=== PATIENT | female | born 1970 ===

== ENCOUNTER 2022-05-31 20:23 | Emergency (ER) | payer MEDICARE, OTHER ==
[~2022-05-31] VITALS: Ht 157.5 cm; Wt 53.2 kg
[2022-05-31 20:24] VITALS: TEMP 98.7
[2022-05-31 21:08] LABS: MEAN CELL VOLUME 94 fl (80.0-100.0); MEAN CORPUSCULAR HGB CONC 33 g/dl (33.0-37.0); MEAN PLATELET VOLUME 10.6 fl (7.4-10.4); PLATELET COUNT 417 K/mm3 (130-400); RED BLOOD COUNT 3.09 M/mm3 (4.10-5.30)
[2022-05-31] MEDS ORDERED: AMBIEN 5MG TABLE5 MG (21:19)
[2022-05-31] MEDS ORDERED: NORCO 325 MG-101 TAB PO (21:20)
[2022-05-31] MEDS ORDERED: NARCAN4 MG NS (21:20)
[2022-05-31] MEDS ORDERED: NARCAN4 MG (21:20)
[2022-05-31] MEDS ORDERED: MS CONTIN 330 MG/TAB PO (21:20)
[2022-05-31] MEDS ORDERED: DECADRON 4MG TAB4 MG PO (21:21)
[2022-05-31] MEDS ORDERED: CYMBALTA 30MG30 MG PO (21:21)
[2022-05-31] MEDS ORDERED: FLEXERIL5 MG PO (21:21)
[2022-05-31] MEDS ORDERED: TAPAZOLE5 MG PO (21:21)
[2022-05-31 21:22] LABS: HEMATOCRIT 28.9 % (37.0-47.0); HEMOGLOBIN 9.4 g/dl (12.5-16.0); MEAN CORPUSCULAR HEMOGLOBIN 30 pg (27-31)
[2022-05-31] MEDS ORDERED: COMPAZINE 110 MG/TAB PO (21:22)
[2022-05-31] MEDS ORDERED: TENORMIN 5050 MG/TAB PO (21:22)
[2022-05-31] MEDS ORDERED: FOLIC ACID 11 MG/TA1 PO (21:22)
[2022-05-31] MEDS ORDERED: ZOFRAN8 MG PO (21:22)
[2022-05-31] MEDS ORDERED: ATARAX 25MG25 MG/TAB PO (21:22)
[2022-05-31] MEDS ORDERED: PROTONIX 40MG T40 MG PO (21:23)
[2022-05-31 21:27] LABS: ACETONE,SERUM NEGATIVE
[2022-05-31 21:31] LABS: ALANINE AMINOTRANSFERASE 229 U/L (0-55); ALKALINE PHOSPHATASE 147 U/L (40-150); ANION GAP 11 mmol/L (7-16); AST,SGOT 118 U/L (5-34); BLOOD UREA NITROGEN 34 mg/dL (10-20); CALCIUM 8.4 mg/dL (8.4-10.2); CARBON DIOXIDE 21 mmol/L (22-29); CHLORIDE 103 mmol/L (98-107); CREATININE, serum 1.57 mg/dL (0.57-1.11); LIPASE 27 U/L (8-78); POTASSIUM 4.9 mmol/L (3.5-4.5); SODIUM 135 mmol/L (136-145); TOTAL PROTEIN 6.6 gm/dL (6.2-8.1)
[2022-05-31 21:36] LABS: GLUCOSE 559 mg/dL (70-99)
[2022-05-31 21:41] LABS: ANISOCYTOSIS 2+; BAND 2 % (0-10); HYPOCHROMIA 1+; LYMPHOCYTE 12 % (20.0-51.0); METAMYELOCYTE 3 % (0-0); NEUTROPHILS 81 % (42.0-75.2); PLATELET ESTIMATE INCREASED (NORMAL)
[2022-05-31 21:45] LABS: BILIRUBIN,TOTAL 0.5 mg/dL (0.2-1.2)
[2022-05-31 23:16] LABS: COLLECTION METHOD CLEAN CATCH
[2022-05-31 23:22] LABS: MUCOUS Present (NOT PRESENT); SQUAMOUS EPITHELIAL 0-2 /hpf (0-10); URINE BACTERIA None Seen /hpf (NONE SEEN)
[2022-05-31 23:23] LABS: PH 5.5 (5.0-8.5); URINE APPEARANCE Clear (CLEAR/HAZY); URINE BLOOD TRACE-LYSED (NEGATIVE); URINE COLOR Yellow (YELLOW); URINE GLUCOSE 3+ (NEGATIVE); URINE KETONE Negative (NEGATIVE); URINE NITRATE Negative (NEGATIVE); URINE PROTEIN(semi-quant) 1+ (NEGATIVE); URINE UROBILINOGEN 0.2 E.U/dL (0.2-1.0)
[2022-05-31 23:26] VITALS: BP 112/77; PULSE 90
[2022-05-31 23:29] LABS: TRICYCLIC ANTIDEPRESS URINE NEGATIVE
== END 2022-05-31 23:26 | disposition left against medical advice (07) ==
LOC: COL.ER 20:23
PROVIDERS: Physician Assistant
DX: R41.82 Altered mental status, unspecified (principal); R73.9 Hyperglycemia, unspecified; F17.210 Nicotine dependence, cigarettes, uncomplicated; Z28.310 Unvaccinated for COVID-19; Z85.841 Personal history of malignant neoplasm of brain; Z85.118 Personal history of other malignant neoplasm of bronchus and lung; Z92.21 Personal history of antineoplastic chemotherapy; Z92.3 Personal history of irradiation
CPT/HCPCS: J1815; J7030

== ENCOUNTER 2022-09-02 15:28 | Inpatient (IN) | payer MEDICARE, OTHER ==
[~2022-09-02] VITALS: Ht 157.5 cm; Wt 54.2 kg
[~2022-09-02 15:28] MED LIST: AMBIEN 5MG TABLE5 MG PO; ATARAX 25MG25 MG/TAB PO; BD ALCOHOL1 SWA MC; COMPAZINE 110 MG/TAB PO; CYMBALTA 30MG30 MG PO; DECADRON 4MG TAB4 MG PO; DOXYCYCLINE 10100 MG PO; FLEXERIL5 MG PO; FOLIC ACID 11 MG/TA1 PO; FREESTYLE PREC1 EAC5 MC; GLUCAGON EMERGEN1 M1 SQ; GLUCOSE TEST ST1 DEV MC; INSULIN PEN NE1 EAC1 MC; LANCETS MC; LEVEMIR FLEX100 U/ML SQ; MS CONTIN 330 MG/TAB PO; NARCAN4 MG; NARCAN4 MG NS; NORCO 325 MG-101 TAB PO; PROTONIX 40MG T40 MG PO; PROVENTIL0.09 MG/A1 IH; TAPAZOLE5 MG PO; TENORMIN 5050 MG/TAB PO; ZOFRAN8 MG PO
[2022-09-02 16:26] LABS: BASO % 0.3 % (0.0-2.0); EOS # 0.1 K/mm3 (0.0-0.7); EOS % 0.9 % (0.0-4.0); GRAN % 76.1 % (42.2-75.2); HEMOGLOBIN 10.1 g/dl (12.5-16.0); LYMPH # 1.1 K/mm3 (1.2-3.4); LYMPH % 13.6 % (20.0-51.0); MEAN CELL VOLUME 95 fl (80.0-100.0); MEAN CORPUSCULAR HEMOGLOBIN 31 pg (27-31); MEAN CORPUSCULAR HGB CONC 33 g/dl (33.0-37.0); MEAN PLATELET VOLUME 10.4 fl (7.4-10.4); MONO # 0.6 K/mm3 (0.1-0.6); MONO % 8.1 % (1.7-9.3); PLATELET COUNT 149 K/mm3 (130-400); RED BLOOD COUNT 3.22 M/mm3 (4.10-5.30); REDCELL DISTRIBUTION WIDTH-CV 15.9 % (11.5-14.5)
[2022-09-02 16:28] LABS: HEMATOCRIT 30.5 % (37.0-47.0)
[2022-09-02 16:47] LABS: ALANINE AMINOTRANSFERASE 59 U/L (0-55); ALBUMIN 3.4 gm/dL (3.5-5.0); ALKALINE PHOSPHATASE 226 U/L (40-150); ANION GAP 13 mmol/L (7-16); AST,SGOT 87 U/L (5-34); BILIRUBIN,TOTAL 1.3 mg/dL (0.2-1.2); BLOOD UREA NITROGEN 19 mg/dL (10-20); C-REACTIVE PROTEIN 12.31 mg/dL (0.00-0.50); CALCIUM 9.6 mg/dL (8.4-10.2); CARBON DIOXIDE 25 mmol/L (22-29); CHLORIDE 101 mmol/L (98-107); CREATININE, serum 1.44 mg/dL (0.57-1.11); GLUCOSE 150 mg/dL (70-99); LIPASE 9 U/L (8-78); MAGNESIUM 1.7 mg/dL (1.6-2.6); POTASSIUM 3.2 mmol/L (3.5-4.5); SODIUM 139 mmol/L (136-145); TOTAL PROTEIN 7.2 gm/dL (6.2-8.1)
[2022-09-02 16:48] LABS: SALICYLATE < 5.0 mg/dL (15.0-30.0)
[2022-09-02 16:54] LABS: COLLECTION METHOD CLEAN CATCH
[2022-09-02 16:55] LABS: TROPONIN-I < 0.010 ng/mL (0.00-0.033)
[2022-09-02 17:04] LABS: MUCOUS Present (NOT PRESENT); SQUAMOUS EPITHELIAL None Seen /hpf (0-10); URINE BACTERIA None Seen /hpf (NONE SEEN)
[2022-09-02 17:05] LABS: PH 5.5 (5.0-8.5); URINE APPEARANCE Clear (CLEAR/HAZY); URINE COLOR Yellow (YELLOW); URINE GLUCOSE TRACE (NEGATIVE); URINE KETONE 1+ (NEGATIVE); URINE PROTEIN(semi-quant) 2+ (NEGATIVE)
[2022-09-02 17:06] LABS: URINE BLOOD TRACE-INTACT (NEGATIVE); URINE NITRATE Negative (NEGATIVE)
--- NOTE | 2022-09-02 17:49 | NUR ---
Cefepime substituted to 1 gram q 8 hours per patient's decreased renal function.
[2022-09-02 18:00] VITALS: BP 135/76; PULSE 80; TEMP 99.1
--- NOTE | 2022-09-02 18:14 | NUR ---
Patient arrived to the unit by wheelchair, alert and oriented x 2, states she does not know why she is here, VSS. Asssessment intake completed.
[2022-09-02 19:08] VITALS: BP 124/71; PULSE 82; TEMP 99.1
--- NOTE | 2022-09-02 19:46 | NUR ---
PT GIVEN SVN VIA MASK. TOLERATED WELL. SHE CONTINUES TO DOZE OF DURING TREATMENT. NO SIGNS OF DISTRESS NOTED. NO VOICED CONERNS.
[2022-09-02 23:12] VITALS: BP 121/70; PULSE 71; TEMP 98.5
--- NOTE | 2022-09-03 01:58 | NUR ---
Shift assessment completed at 2029. Pt is A&O x3. Words are unintelligible due to swollen R cheek. Pt requesting mouth wash to calm pain. Tylenol offered, but pt refused. Mouth wash provided, and reassessed 20 min later. Pt expressed no improvement. Provider notified and received new orders for pain management. LFA peripheral line is CDI; fluids running. Bed alarm on. Belongings and call light are within reach.
[2022-09-03 03:07] VITALS: BP 118/70; PULSE 77; TEMP 98
[2022-09-03 05:59] LABS: BASO % 0.3 % (0.0-2.0); GRAN # 5.8 K/mm3 (1.4-6.5); GRAN % 82.8 % (42.2-75.2); LYMPH % 13.5 % (20.0-51.0); MEAN CELL VOLUME 96 fl (80.0-100.0); MEAN CORPUSCULAR HGB CONC 32 g/dl (33.0-37.0); MEAN PLATELET VOLUME 10.6 fl (7.4-10.4); MONO # 0.2 K/mm3 (0.1-0.6); MONO % 2.8 % (1.7-9.3); PLATELET COUNT 135 K/mm3 (130-400); RED BLOOD COUNT 2.99 M/mm3 (4.10-5.30); REDCELL DISTRIBUTION WIDTH-CV 15.9 % (11.5-14.5)
[2022-09-03 06:03] LABS: HEMATOCRIT 28.7 % (37.0-47.0); HEMOGLOBIN 9.3 g/dl (12.5-16.0); MEAN CORPUSCULAR HEMOGLOBIN 31 pg (27-31)
[2022-09-03 06:12] LABS: CALCIUM 8.6 mg/dL (8.4-10.2); CREATININE, serum 0.95 mg/dL (0.57-1.11); MAGNESIUM 1.6 mg/dL (1.6-2.6); POTASSIUM 3.7 mmol/L (3.5-4.5)
[2022-09-03 06:34] LABS: TSH w REFLEX 1.091 uIU/mL (0.350-4.940)
--- NOTE | 2022-09-03 07:06 | NUR ---
PT REFUSED TO TAKE TREATMENT IN NO DISTRESS
[2022-09-03 07:40] VITALS: BP 123/76; PULSE 84; TEMP 98.3
--- NOTE | 2022-09-03 08:45 | NUR ---
Pt awake and laying in bed. Morning medications administered per eMAR. Shift assessment completed. VSS. Pt A&Ox4. IV site L forearm, patent, no edema, no redness, and keisha wrap in place. Pt agitated as she states she "needs" her "scheduled" pain medication. This nurse explains the pain medication she is referring to is not scheduled. Pt states she is having pain on her lower back 03/07; JORGE Ely notified and Donte on order. Call light within reach.
--- NOTE | 2022-09-03 09:41 | NUR ---
MAURILIO met with the patient to discuss discharge plan. The patient lives in [place] with her friend, Nyla Stephenson (ph#[phone]). She reports independence with ADLs and has a cane and walker. SW inquired about home health. The patient states that she had home health in the past, but not any longer. The patient's PCP is Dr. Anny East and she receives her medications from [facility] in [facility]. The patient does not have a DPOA-HC, but she was interested in obtaining a form. MAURILIO provided. The patient states that she is and has two children: Shereen ([place]) and Herber ([place], [place]). MAURILIO informed her how her two children would be her legal next of kin. The patient states that she has not talked to her children in over a month and would not want them to make her decisions. She states that she would want her mother, Kassidy Davis, to make her decisions. MAURILIO informed her then it is important that she complete a DPOA-HC then. The patient verbalized understanding, but declined to complete the DPOA-HC at this time. She states that she does not have a phone number for her mother right now. The patient plans to return home with her friend upon discharge. SW discussed getting home health services started back up again. The patient declined. *Discharge plan: home with friend*
[2022-09-03] MEDS ORDERED: KEYTRUDA25 MG/ML IV (10:53)
--- NOTE | 2022-09-03 11:00 | NUR ---
Pt informs this nurse she would like to leave AMA and would like to speak to the charge nurse. This nurse explained to the pt the importance and necessity of treatment. Pt continues to express she "just wants to go home." This nurse notified QUAN Gunn.
[2022-09-03 11:21] VITALS: BP 135/71; PULSE 77; TEMP 98
--- NOTE | 2022-09-03 12:52 | NUR ---
Initial visit: Pt was resting and content. Pt stated no needs rigth now. Physical Security Manager will follow up as needed.
--- NOTE | 2022-09-03 13:05 | NUR ---
PT REFUSED TO TAKE RESTING COMFORTABLY WITH NO INCREASED WOB
[2022-09-03] MEDS ORDERED: LEVEMIR FLEX100 U/ML SQ (13:38)
[2022-09-03] MEDS ORDERED: MAG-OX 400400 MG/TAB PO (13:39)
[2022-09-03] MEDS ORDERED: K-DUR 10 MEQ T10 MEQ PO (13:40)
[2022-09-03] MEDS ORDERED: PRINIVIL10 MG PO (13:40)
[2022-09-03] MEDS ORDERED: OMNICEF 300MG300 MG PO (14:18)
--- NOTE | 2022-09-03 14:20 | NUR ---
Pt departed AMA.
--- NOTE | 2022-09-03 14:23 | NUR ---
The patient left AMA.
--- NOTE | 2022-09-03 16:00 | NUR ---
[facility] contacted [facility] social worker[facility]. Caregivers reports that they had the patient on for services and the plan was to discharge her from services on Saturday. Caregivers updated that the patient left AMA. This SW faxed the Discharge Summary to [facility].
== END 2022-09-03 14:20 | disposition left against medical advice (07) | DRG 92 ==
LOC: COL.ER 15:28 → MEDICAL 16:49
PROVIDERS: Emergency Medicine; ADMIT Internal Medicine
DX: G92.9 Unspecified toxic encephalopathy (principal); C34.90 Malignant neoplasm of unspecified part of unspecified bronchus or lung; C79.31 Secondary malignant neoplasm of brain; R65.10 Systemic inflammatory response syndrome (SIRS) of non-infectious origin without acute organ dysfunction; D84.9 Immunodeficiency, unspecified; E87.0 Hyperosmolality and hypernatremia; L40.50 Arthropathic psoriasis, unspecified; G89.29 Other chronic pain; M54.9 Dorsalgia, unspecified; Z20.822 Contact with and (suspected) exposure to COVID-19; E87.6 Hypokalemia; E11.22 Type 2 diabetes mellitus with diabetic chronic kidney disease; Z53.21 Procedure and treatment not carried out due to patient leaving prior to being seen by health care provider; N18.30 Chronic kidney disease, stage 3 unspecified; E83.42 Hypomagnesemia; Z86.73 Personal history of transient ischemic attack (TIA), and cerebral infarction without residual deficits; Z88.0 Allergy status to penicillin; Z79.4 Long term (current) use of insulin; Z23 Encounter for immunization
CPT/HCPCS: J0692; J1650; J1815; J2270; J3475; J3480; J7030; J8540

== ENCOUNTER 2022-09-18 13:56 | Inpatient (IN) | payer MEDICARE, OTHER ==
[~2022-09-18] VITALS: Ht 157.5 cm; Wt 50.9 kg
[~2022-09-18 13:56] MED LIST changes: +K-DUR 10 MEQ T10 MEQ PO; +KEYTRUDA25 MG/ML IV; +MAG-OX 400400 MG/TAB PO; +OMNICEF 300MG300 MG PO; +PRINIVIL10 MG PO
[2022-09-18 15:28] LABS: MEAN CELL VOLUME 97 fl (80.0-100.0); MEAN CORPUSCULAR HGB CONC 32 g/dl (33.0-37.0); MEAN PLATELET VOLUME 10.6 fl (7.4-10.4); PLATELET COUNT 159 K/mm3 (130-400); RED BLOOD COUNT 2.76 M/mm3 (4.10-5.30); REDCELL DISTRIBUTION WIDTH-CV 16.8 % (11.5-14.5)
[2022-09-18 15:48] LABS: ALBUMIN 2.2 gm/dL (3.5-5.0); BILIRUBIN,TOTAL 1.7 mg/dL (0.2-1.2); CALCIUM 7.7 mg/dL (8.4-10.2); CREATININE, serum 0.89 mg/dL (0.57-1.11); TOTAL PROTEIN 5.4 gm/dL (6.2-8.1)
[2022-09-18 15:50] LABS: POTASSIUM 2.5 mmol/L (3.5-4.5)
[2022-09-18 16:06] LABS: HEMATOCRIT 26.8 % (37.0-47.0); HEMOGLOBIN 8.5 g/dl (12.5-16.0); MEAN CORPUSCULAR HEMOGLOBIN 31 pg (27-31)
[2022-09-18 16:30] LABS: ANISOCYTOSIS 1+; BAND 5 % (0-10); LYMPHOCYTE 9 % (20.0-51.0); NEUTROPHILS 84 % (42.0-75.2); PLATELET ESTIMATE NORMAL (NORMAL)
[2022-09-18 16:31] LABS: HYPOCHROMIA 1+; POLYCHROMASIA 1+
[2022-09-18 16:37] LABS: COLLECTION METHOD CLEAN CATCH
[2022-09-18 16:42] LABS: PH 5.5 (5.0-8.5); URINE APPEARANCE Clear (CLEAR/HAZY); URINE BLOOD TRACE-INTACT (NEGATIVE); URINE COLOR Yellow (YELLOW); URINE GLUCOSE Negative (NEGATIVE); URINE KETONE TRACE (NEGATIVE); URINE NITRATE Negative (NEGATIVE); URINE PROTEIN(semi-quant) 1+ (NEGATIVE)
[2022-09-18 16:43] LABS: MUCOUS Present (NOT PRESENT); URINE BACTERIA None Seen /hpf (NONE SEEN); URINE RBC 0-2 /hpf (0-2)
[2022-09-18 20:50] VITALS: BP 142/82; PULSE 104; TEMP 98.1
--- NOTE | 2022-09-18 20:54 | NUR ---
Vancomycin Initial Dosing Pharmacy Note Ordering provider: Rigoberto Clark MD Indication/duration: SEPSIS/CELLULITIS, PATIENT ALSO RECEIVING CEFEPIME 1G Q6H LABS: SCR 0.89, ESTIMATED CRCL ~58 ML/MIN Recommendation: 1000MG Q24 HOURS, PREDICTED TROUGH ~11 AT THIS DOSE. NO TROUGH ORDERED AT THIS TIME. Maintenance dose: 1000 MG Q24 HOURS, 2200 Trough goal: 10-15
[2022-09-18] MEDS ORDERED: MS CONTIN 330 MG/TAB PO (22:12)
[2022-09-18 23:57] LABS: CALCIUM 7.3 mg/dL (8.4-10.2); CREATININE, serum 1.04 mg/dL (0.57-1.11); MAGNESIUM 1.4 mg/dL (1.6-2.6); POTASSIUM 3.9 mmol/L (3.5-4.5)
[2022-09-19 00:28] VITALS: BP 109/57; PULSE 77; TEMP 98
[2022-09-19 04:25] VITALS: BP 109/54; PULSE 66; TEMP 97.6
--- NOTE | 2022-09-19 05:40 | NUR ---
PATIENT ADMITTED TO ROOM 312 FROM THE EMERGENCY ROOM. SHE IS AOX4 AND PLEASANT TO SPEAK WITH. PICC IN RIGHT ARM FLUSHES AND HAS BLOOD RETURN IN BOTH LUMENS. NS GOING AT 75ML/HR. CONTINUES ON RA. HER FACE IS SWOLLEN. HER SKIN IS PEELING ALL OVER HER BODY. BLE HER HARD TO TOUCH, SCALY, AND PEELING. K-2.5, REPLACED IN THE ED. MAG-1.4, REPLACED WITH 4G IV. BG- 313, GIVEN 8 UNITS. ON SOLUMEDROL, MAXIPIME, AND VANCO. DAY SHIFT WILL NEED TO CALL DR. MARTINEZ ABOUT HER HOME MEDICATION LIST. SHE IS SBA WITH AMBULATION. STATES HER PAIN IS A 7-8/10 ALL OVER HER BODY. USES TOBACCO AT HOME. PER PATIENT, TAKES CHEMO MONTHLY AND IS DUE FOR IT ON SATURDAY. THE CAUSE OF THE SKIN BREAKOUT IS FROM STOP TAKING HER STEROID AT HOME PER PATIENT. CALL LIGHT IN REACH. BED IN LOWEST POSITION.
[2022-09-19 06:53] LABS: BASO % 0.2 % (0.0-2.0); GRAN # 10.2 K/mm3 (1.4-6.5); GRAN % 86.9 % (42.2-75.2); LYMPH % 8.3 % (20.0-51.0); MEAN CELL VOLUME 100 fl (80.0-100.0); MEAN CORPUSCULAR HGB CONC 31 g/dl (33.0-37.0); MEAN PLATELET VOLUME 10.7 fl (7.4-10.4); MONO # 0.4 K/mm3 (0.1-0.6); MONO % 3.3 % (1.7-9.3); PLATELET COUNT 151 K/mm3 (130-400); RED BLOOD COUNT 2.44 M/mm3 (4.10-5.30); REDCELL DISTRIBUTION WIDTH-CV 17.2 % (11.5-14.5)
[2022-09-19 06:54] LABS: HEMATOCRIT 24.4 % (37.0-47.0); HEMOGLOBIN 7.5 g/dl (12.5-16.0); MEAN CORPUSCULAR HEMOGLOBIN 31 pg (27-31)
[2022-09-19 07:07] LABS: ALBUMIN 1.9 gm/dL (3.5-5.0); CALCIUM 7.3 mg/dL (8.4-10.2); CREATININE, serum 0.93 mg/dL (0.57-1.11); MAGNESIUM 3.4 mg/dL (1.6-2.6); PHOSPHOROUS 1.8 mg/dL (2.3-4.7); POTASSIUM 3.3 mmol/L (3.5-4.5)
--- NOTE | 2022-09-19 10:38 | NUR ---
Initial visit; Patient very sweetly said that she didn't want to talk at this time because she just received her breakfast. Graining Machine Operator just wished her God's blessings. Engine Setter has since mentioned that Landy is being transferred to [facility] in [place], [place].
[2022-09-19 11:05] VITALS: BP 121/73; PULSE 60; TEMP 97.6
[2022-09-19 14:23] VITALS: BP 117/67; PULSE 60; TEMP 97.7
--- NOTE | 2022-09-19 15:00 | NUR ---
Eduardo notified of positive blood cultures.
--- NOTE | 2022-09-19 15:51 | NUR ---
SW met with patient to complete intake and discuss discharge plan. Patient reports that she lives in [place] with her friend Nyla ([phone]). Patient reports that she is fully independent with her ADL's and IADL's. Patient reports that she utilizes both a cane and a walker to assist with mobility. She has no home oxygen needs. PCP is and [facility] pharmacy in [facility]. Patient does not have a DPOA-HC established but has two children that are estranged from her, Shereen and Herber. Patient verbalizes that she would like to make a DPOA-HC listing her mother Kassidy Davis ([phone]) who lives in [place] and her brother Miguel Davis ([phone]) who lives in [place]. Patients signed form witnessed by this MAURILOI and MAURILIO Augustin. Signed copy placed in the patients chart and original with additional copies are provided to the patient. Patient is planning on returning home once medically ready. Discharge plan:home
--- NOTE | 2022-09-19 16:04 | NUR ---
Raise Driller spoke with patient's brother, Moises Davis (ph#[phone]) who had questions about hospice services and assisted living. SW provided information on coverage for these services and directed Moises to Medicare.gov to review list of hospice providers. Moises plans to visit patient in September to discuss living options as patient cannot maintain where she is currently living. SW consulted financial counseling about potential Medicaid.
[2022-09-19] MEDS ORDERED: NORVASC 5MG5 MG/TAB PO (16:12)
[2022-09-19] MEDS ORDERED: CEPHALEXIN500 M1 PO (16:13)
[2022-09-19] MEDS ORDERED: CLEOCIN HC150 MG/CAP PO (16:14)
[2022-09-19] MEDS ORDERED: FLEXERIL5 MG PO (16:15)
[2022-09-19] MEDS ORDERED: BENADRYL25 M2 PO (16:17)
[2022-09-19] MEDS ORDERED: FLOVENT 110MCG7.9 GM (16:19)
[2022-09-19] MEDS ORDERED: GLUCOPHAGE500 MG/TAB PO (16:27)
--- NOTE | 2022-09-19 18:00 | NUR ---
Scheduled medications given. Shift assessment performed. VSS. Patient A&O. Skin issues noted in shift assessment. Aquaphor ointment applied per orders. Patient states that this has helped alleviated discomfort. Med rec updated and Dr. Clark notified about the changes. Patient is currenltly resting in bed. Denies any pain, discomfort, SOA, or further needs at this time. Call light in reach.
[2022-09-19 20:03] VITALS: BP 103/53; PULSE 75; TEMP 97.7
--- NOTE | 2022-09-19 20:44 | NUR ---
Patient assessed around 2024. Alert and oriented x 4, and able to make needs known. Reports mild pain all over. Given scheduled MS Contin per orders. Has psoriasis all over, skin pealing. Aquaphor applied, which patient reports helps. PICC to RUE, IV fluids running per ordergs. Given steroids and ABX. BS elevated, given insulin per orders. Explained to patient that steroids will increase blood sugars, and voiced understanding. Voices no questions, needs, or concerns at this time. In bed with call light within reach.
[2022-09-19 23:55] VITALS: BP 93/53; PULSE 63; TEMP 97.7
[2022-09-20 03:52] VITALS: BP 108/62; PULSE 63; TEMP 97.4
--- NOTE | 2022-09-20 05:36 | NUR ---
Patient given PRN [place] as requested for pain during the night. Received IV ABX and steroid per orders. Voices no questions, needs, or concerns at this time. In bed with call light within reach.
[2022-09-20 07:00] LABS: MEAN CELL VOLUME 101 fl (80.0-100.0); MEAN CORPUSCULAR HGB CONC 31 g/dl (33.0-37.0); MEAN PLATELET VOLUME 11.3 fl (7.4-10.4); PLATELET COUNT 160 K/mm3 (130-400); RED BLOOD COUNT 2.44 M/mm3 (4.10-5.30); REDCELL DISTRIBUTION WIDTH-CV 17.3 % (11.5-14.5)
[2022-09-20 07:10] LABS: HEMATOCRIT 24.7 % (37.0-47.0); HEMOGLOBIN 7.6 g/dl (12.5-16.0); MEAN CORPUSCULAR HEMOGLOBIN 31 pg (27-31)
[2022-09-20 07:20] LABS: CALCIUM 7.7 mg/dL (8.4-10.2); CREATININE, serum 0.79 mg/dL (0.57-1.11); MAGNESIUM 2.1 mg/dL (1.6-2.6); PHOSPHOROUS 2.5 mg/dL (2.3-4.7); POTASSIUM 3.8 mmol/L (3.5-4.5)
--- NOTE | 2022-09-20 07:42 | NUR ---
Pt BS of 65 reported to this ENTERPRISE SECURITY ARCHITECT. Pt eating breakfast when this ENTERPRISE SECURITY ARCHITECT went to check on the pt. Medication given. Shift assessment completed at this time. A&O x4. Denies any pain or discomfort. Skin is very flaky and peeling. PICC line on MAR. Fluids running at this time. Belongings and call light are within reach.
[2022-09-20 07:59] LABS: BAND 6 % (0-10); LYMPHOCYTE 2 % (20.0-51.0); NEUTROPHILS 91 % (42.0-75.2); PLATELET ESTIMATE NORMAL (NORMAL)
[2022-09-20 08:00] LABS: ANISOCYTOSIS 1+; HYPOCHROMIA 2+; TARGET CELLS 1+
[2022-09-20 08:08] VITALS: BP 102/52; PULSE 67; TEMP 97.5
[2022-09-20 11:35] VITALS: BP 116/70; PULSE 65; TEMP 97.6
--- NOTE | 2022-09-20 12:10 | NUR ---
Follow-up visit; Patient is no longer suffering from pain and seems to feel better otherwise. Surg Rn attempted to speak with her though she remained quiet and seemed not interested in conversation. Surg Rn offered God's blessings and wished her well.
--- NOTE | 2022-09-20 15:30 | NUR ---
Patient scheduled telehealth visit with Dr. Harris, Infectious Disease. Pt consents to visit. Equipment set up, audio and video connections established. Visit conducted by . No technical concerns or issues.
[2022-09-20 16:00] VITALS: BP 120/78; PULSE 65; TEMP 97.8
[2022-09-20 19:42] VITALS: BP 113/66; PULSE 74; TEMP 97.7
[2022-09-20 23:41] VITALS: BP 116/63; PULSE 67; TEMP 98.2
[2022-09-21 03:35] VITALS: BP 127/71; PULSE 69; TEMP 98.1
[2022-09-21 06:48] LABS: MEAN CELL VOLUME 100 fl (80.0-100.0); MEAN CORPUSCULAR HGB CONC 31 g/dl (33.0-37.0); MEAN PLATELET VOLUME 11.1 fl (7.4-10.4); PLATELET COUNT 168 K/mm3 (130-400); RED BLOOD COUNT 2.44 M/mm3 (4.10-5.30); REDCELL DISTRIBUTION WIDTH-CV 17.6 % (11.5-14.5)
[2022-09-21 06:49] LABS: HEMATOCRIT 24.3 % (37.0-47.0); HEMOGLOBIN 7.5 g/dl (12.5-16.0); MEAN CORPUSCULAR HEMOGLOBIN 31 pg (27-31)
[2022-09-21 07:05] LABS: CALCIUM 7.5 mg/dL (8.4-10.2); CREATININE, serum 0.87 mg/dL (0.57-1.11); PHOSPHOROUS 2.3 mg/dL (2.3-4.7); POTASSIUM 3.9 mmol/L (3.5-4.5)
[2022-09-21 07:40] LABS: ANISOCYTOSIS 1+; BAND 1 % (0-10); HYPOCHROMIA 3+; LYMPHOCYTE 2 % (20.0-51.0); NEUTROPHILS 94 % (42.0-75.2); PLATELET ESTIMATE NORMAL (NORMAL)
[2022-09-21 07:50] VITALS: BP 122/67; PULSE 70; TEMP 98.3
--- NOTE | 2022-09-21 09:48 | NUR ---
PT AWAKE AND ALERT IN BED. NO COMPLAINTS OF PAIN, SOB, CHEST PAIN, OR NAUSEA. STATES SHE IS ANXIOUS TO GO HOME. EATING BREAKFAST. BED IN LOWEST POSITION WITH CALL LIGHT WITHIN REACH.
--- NOTE | 2022-09-21 09:48 | NUR ---
MAURILIO, palliative care RN Juan Martinez and patients RN meet with patient to discuss goals of care. Patient verbalizes that she would like to keep going with radiation and chemo to keep fighting. Patient verbalizes that she would like to have a shower today. Aid notified. Patient upset that she is not discharging today. Education provided and patient agreeable to staying.
--- NOTE | 2022-09-21 11:03 | NUR ---
Jhoana GONZALES, Patience PEREZ and myself met w/pt to discuss Goals of Care. Pt was adamant that she is wanting to do the 15 daily rounds of radiation, wants to keep doing her chemo. States she has good support w/kathy at [facility]. States she prefers to be Full Code. Does not wish to have Palliative or Hospice care at present.
[2022-09-21 11:09] VITALS: BP 150/65; PULSE 61; TEMP 97.7
[2022-09-21 15:48] VITALS: BP 131/63; PULSE 64; TEMP 98.2
[2022-09-21 19:58] VITALS: BP 127/65; PULSE 69; TEMP 98
[2022-09-21 23:48] VITALS: BP 132/67; PULSE 65; TEMP 98.4
[2022-09-22 04:15] VITALS: BP 139/64; PULSE 60; TEMP 98.5
[2022-09-22 06:27] LABS: MEAN CELL VOLUME 97 fl (80.0-100.0); MEAN CORPUSCULAR HGB CONC 32 g/dl (33.0-37.0); MEAN PLATELET VOLUME 11.5 fl (7.4-10.4); PLATELET COUNT 166 K/mm3 (130-400); RED BLOOD COUNT 2.44 M/mm3 (4.10-5.30); REDCELL DISTRIBUTION WIDTH-CV 17.2 % (11.5-14.5)
[2022-09-22 06:30] LABS: HEMATOCRIT 23.7 % (37.0-47.0); HEMOGLOBIN 7.6 g/dl (12.5-16.0); MEAN CORPUSCULAR HEMOGLOBIN 31 pg (27-31)
[2022-09-22 06:46] LABS: ALBUMIN 2.1 gm/dL (3.5-5.0); CALCIUM 7.5 mg/dL (8.4-10.2); CREATININE, serum 0.78 mg/dL (0.57-1.11); MAGNESIUM 1.8 mg/dL (1.6-2.6)
--- NOTE | 2022-09-22 07:25 | NUR ---
PT AWAKE AND ALERT IN BED. NO COMPLAINTS OF PAIN. STATES SHE IS GOING HOME TODAY NO MATTER WHAT. BED IN LOWEST POSITION, CALL LIGHT WITHIN REACH.
[2022-09-22 07:43] LABS: ANISOCYTOSIS 1+; HYPOCHROMIA 2+; LYMPHOCYTE 4 % (20.0-51.0); NEUTROPHILS 95 % (42.0-75.2); NUCLEATED RED BLOOD CELL 1 (0-6); PLATELET ESTIMATE NORMAL (NORMAL)
[2022-09-22 07:45] LABS: TARGET CELLS 1+
[2022-09-22 07:48] VITALS: BP 124/65; PULSE 73; TEMP 97.5
[2022-09-22 09:32] VITALS: BP 149/83; PULSE 65; TEMP 98.4
--- NOTE | 2022-09-22 09:45 | NUR ---
This RN called into bathroom by patient. Patient found sitting on the floor, stated, "I sat down because I am upset and I was trying to clean up my skin flakes. I just want to go home. Now I am having trouble getting up." 2 RNs assisted to standing position, able to ambulate back to bed. VSS temp 98.4, BP 149/83, HR 63, O2 saturation 99%, RR 20. Pt denied hitting anything, no injuries noted to head, trunk or extremities. Dr. Clark notified of this occurrance and that patient is requesting to see him and requesting to go home. Provider verbalized understanding.
[2022-09-22] MEDS ORDERED: AQUAPHOR OINTM396 GM TP ×2 (09:58→10:22)
[2022-09-22] MEDS ORDERED: PRINIVIL10 MG PO (09:59)
[2022-09-22] MEDS ORDERED: OMNICEF 300MG300 MG PO (10:00)
[2022-09-22] MEDS ORDERED: PREDNISONE10 MG PO (10:07)
[2022-09-22] MEDS ORDERED: TEMOVATE OINT30 GM TOP (10:12)
[2022-09-22 11:08] VITALS: BP 145/69; PULSE 53; TEMP 98.5
--- NOTE | 2022-09-22 11:34 | NUR ---
Provided pt with resource infomation for dermatology services: [facility] in [place].
--- NOTE | 2022-09-22 13:40 | NUR ---
Pt discharged to home, picked up by Delmar. Lives at home with a roommate. Educated on new medications and discharge instructions. Pt verbalized understanding. PICC removal prior to discharge - pt tolerated well. Discharge instructions for PICC removal given. Assisted to car safely.
== END 2022-09-22 13:30 | disposition home or self-care (01) | DRG 596 ==
LOC: COL.ER 13:56 → MEDICAL 18:31
PROVIDERS: Emergency Medicine; Student in an Organized Health Care Education/Training Program; ADMIT Internal Medicine
PROC: 02HV33Z Insertion of Infusion Device into Superior Vena Cava, Percutaneous Approach (ICD-10-PCS; principal; 2022-09-18)
DX: L40.9 Psoriasis, unspecified (principal); G93.49 Other encephalopathy; R65.10 Systemic inflammatory response syndrome (SIRS) of non-infectious origin without acute organ dysfunction; D84.9 Immunodeficiency, unspecified; C34.90 Malignant neoplasm of unspecified part of unspecified bronchus or lung; C79.31 Secondary malignant neoplasm of brain; R78.81 Bacteremia; F17.210 Nicotine dependence, cigarettes, uncomplicated; E11.22 Type 2 diabetes mellitus with diabetic chronic kidney disease; N18.30 Chronic kidney disease, stage 3 unspecified; D63.1 Anemia in chronic kidney disease; E87.6 Hypokalemia; B95.7 Other staphylococcus as the cause of diseases classified elsewhere; E86.0 Dehydration; E83.39 Other disorders of phosphorus metabolism; E05.00 Thyrotoxicosis with diffuse goiter without thyrotoxic crisis or storm; Z88.0 Allergy status to penicillin; Z86.73 Personal history of transient ischemic attack (TIA), and cerebral infarction without residual deficits
CPT/HCPCS: OP; C1751; G0378; J0692; J1100; J1650; J1815; J2920; J2930; J3010; J3370; J3475; J3480; J7030; J7050; Q9967